=== PATIENT | male | born 1960 | race Caucasian/White ===

== ENCOUNTER 2024-05-25 05:42 | Inpatient (IN) | payer MEDICARE, OTHER ==
[2024-05-14 11:25] VITALS: BP 118/77
[~2024-05-25] VITALS: Ht 175.3 cm; Wt 79.5 kg
[2024-05-25] VITALS (8 sets, daily range): BP systolic 116–136; BP diastolic 56–73
[~2024-05-25 05:42] MED LIST: CLEARLAX119 GM PO; GABAPENTIN300 MG PO; HYDROCODON-ACE1 EA10 PO; HYDROXYZINE HCL50 MG PO; LACTATED RINGER'S 1,000 ML IV SCH; MELOXICAM7.5 MG PO; MYRBETRIQ50 MG PO; TAMSULOSIN HCL0.4 MG PO; TRAZODONE HCL50 MG PO; VRAYLAR3 MG PO
[2024-05-25] MEDS ORDERED: SODIUM CHLORIDE 0.9% 500 ML IV ONE (05:48)
[2024-05-25] MEDS ORDERED: BUPIVACAINE 0.75% IN DEXTROSE 2 ML AMP ONE (06:02)
[2024-05-25] MEDS ORDERED: LIDOCAINE HCL 2% 5 ML SDV ONE (06:02)
[2024-05-25] MEDS ORDERED: METOCLOPRAMIDE HCL 10 MG/2 ML SDV ONE (06:05)
[2024-05-25] MEDS ORDERED: MIDAZOLAM HCL 2 MG/2 ML VIAL ONE (06:05)
[2024-05-25] MEDS ORDERED: FAMOTIDINE 20 MG/ 2 ML VIAL ONE (06:05)
[2024-05-25] MEDS ORDERED: DEXAMETHASONE SOD PHOS 4 MG/ML VIAL ONE (06:05)
[2024-05-25] MEDS ORDERED: fentaNYL citrate 100 MCG/2 ML VIAL ONE (06:05)
[2024-05-25] MEDS ORDERED: LACTATED RINGER'S 1,000 ML IV ONE ×2 (06:05→07:41)
[2024-05-25] MEDS ORDERED: propofoL 200 MG/20 ML VIAL ONE (06:05)
[2024-05-25] MEDS ORDERED: KETOROLAC TROMETHAMINE 30 MG/ML VIAL ONE (06:05)
[2024-05-25] MEDS ORDERED: ondansetron HCL 4 MG/2 ML VIAL ONE (06:05)
[2024-05-25] MEDS ORDERED: KETAMINE in NS 50 MG/5 ML SYR ONE (06:05)
[2024-05-25] MEDS ORDERED: GABAPENTIN 600 MG TAB PO SCH ×2 (07:00→15:00)
[2024-05-25] MEDS ORDERED: OXYCODONE HCL 5 MG TAB PO SCH (07:00)
[2024-05-25] MEDS ORDERED: IBLOOD GLUCOSE TEST STRIP 1 EA TEST VI PRN ×2 (07:00→08:15)
[2024-05-25] MEDS ORDERED: TRANEXAMIC ACID 2,000 MG in SODIUM CHLORIDE 0.9% 100 ML IV SCH (07:00)
[2024-05-25] MEDS ORDERED: LIDOCAINE HCL 1% 5 ML SDV INJ ONE (07:00)
[2024-05-25] MEDS ORDERED: CEFAZOLIN SODIUM 2 GM/20 ML SYR IV SCH ×2 (07:00→15:00)
[2024-05-25] MEDS ORDERED: PANTOPRAZOLE SODIUM 40 MG TABEC PO SCH (07:00)
[2024-05-25] MEDS ORDERED: ondansetron HCL 4 MG TAB PO SCH (07:00)
[2024-05-25] MEDS ORDERED: INTRA-ARTICULAR ANALGESIC INJECTION XX SCH (07:00)
[2024-05-25] MEDS ORDERED: OXYCODONE HCL 5 MG TAB PO PRN (07:00)
[2024-05-25] MEDS ORDERED: KETOROLAC TROMETHAMINE 30 MG/ML VIAL IV PRN (08:15)
[2024-05-25] MEDS ORDERED: ondansetron HCL 4 MG/2 ML VIAL IV PRN (08:15)
[2024-05-25] MEDS ORDERED: droPERidol 5 MG/2 ML VIAL IV PRN (08:15)
[2024-05-25] MEDS ORDERED: METOCLOPRAMIDE HCL 10 MG/2 ML SDV IV PRN (08:15)
[2024-05-25] MEDS ORDERED: PROCHLORPERAZINE EDISYLATE 10 MG/2 ML VIAL IV PRN (08:15)
[2024-05-25] MEDS ORDERED: fentaNYL citrate 50 MCG/ML SDV IV PRN (08:15)
[2024-05-25] MEDS ORDERED: MEPERIDINE HCL 25 MG/1 ML VIAL IV PRN (08:15)
[2024-05-25] MEDS ORDERED: NALOXONE HCL 0.4 MG SYR IV PRN (08:15)
[2024-05-25] MEDS ORDERED: HYDROmorphone HCL 1 MG/ML SYR IV PRN (08:15)
[2024-05-25] MEDS ORDERED: ACETAMINOPHEN500 MG PO (08:52)
[2024-05-25] MEDS ORDERED: XARELTO10 MG PO (08:52)
[2024-05-25] MEDS ORDERED: OXYCODONE HCL5 MG PO (08:52)
[2024-05-25] MEDS ORDERED: SENNA LAX8.6 MG PO (08:52)
--- NOTE | 2024-05-25 09:27 | NUR ---
05/25/24 0901 Faiza Crisostomo 0813- PT ARRIVES TO PACU, SEMI FELIX POSITION WITH OPA IN PLACE. PT MAINTAINS AIRWAY WITH JUST OPA, BREATHING EVEN AND NON LABORED, O2 AT 6L PER MASK. ABD SOFT, NON DISTENDED. DRESSINGS X 2 TO RIGHT HIP, CDI. PT NON REACTIVE TO STIMULUS, LR INFUSING TO RFA IV. ALL MONITORS IN PLACE. XRAY CALLED FOR PELVIS XRAY. 0906- XRAY COMPLETED, PT REMAINS NON REACTIVE TO ALL STIMULUS. CRYO CUFF PLACED AND HEELS ELEVATED ON TOWEL ROLLS. 0913- PT REACTIVE TO STIMULUS, MOVING FINGERS AND RESPONDS TO VERBAL STIMULI. PT FOLLOWS COMMANDS TO REMOVE OPA. PT ABLE TO SWALLOW, O2 REMAINS IN PLACE. 0919- PT MOVED TO ROOM AIR, WILL CONTINUE TO MONITOR. PT REPORTS PAIN 4/10, ALTHOUGH ONLY FEELS PRESSURE JUST BELOW T2. PT HAS NO MOVEMENT TO B LEGS AT THIS TIME.
[2024-05-25] MEDS ORDERED: TRANEXAMIC ACID 2,000 MG in SODIUM CHLORIDE 0.9% 100 ML IV ONE ×2 (09:28→09:58)
--- NOTE | 2024-05-25 09:40 | NUR ---
PT ARRIVES TO DS FROM PACU VIA STRETCHER. PT IS DROWSY, BUT RESPONSIVE TO VERBAL STIMULI AT THIS TIME. PT REPORTS PAIN IS 0/10 AT THIS TIME, NO PRN PAIN MED GIVEN. DRESSING VISUALIZED W/DANILO PERALTA, SMALL AMOUNT OF RED SHADOWING ON SUPERIOR DRESSING. CRYO CUFF, ENOCH HOSE, HEEL PROTECTORS, AND FOOT PUMPS IN PLACE. PT UNABLE TO WIGGLE TOES AT THIS TIME, SPINAL AT KNEE LEVEL. ICE WATER, APPLESAUCE, AND CRACKERS PROVIDED AT BEDSIDE. PT TOLERATING SMALL SIPS OF WATER WITHOUT DIFFICULTY. CALL LIGHT WITHIN REACH, PT REPORTS NO FURTHER NEEDS AT THIS TIME. NO FAMILY OR FRIENDS PRESENT.
--- NOTE | 2024-05-25 10:40 | NUR ---
IN PT ROOM FOR VS AND ASSESSMENT. NO ACUTE CHANGES FROM PREVIOUS ASSESSMENT. SUPERIOR DRESSING REINFORCED D/T PEELING UP. PT TRYING TO URINE VOID THIS TIME, BUT UNABLE. PT TOLERATED ALL OF ICE WATER, CRACKERS, AND APPLESAUCE WITHOUT DIFFICULTY OR REPORT OF ONSET OF NAUSEA. SPINAL RESOLVED IN RLE, IN LLE PT REPORTS NUMBNESS ON POSTERIOR ASPECT OF FOOT AND CALF. PT ABLE TO WIGGLE TOES. ORDER FOR LUNCH PLACED. PT REPORTS PAIN 3/10 AND TOLERABLE AT THIS TIME, STATES NO NEED FOR PRN PAIN MED AT THIS TIME. CALL LIGHT WITHIN REACH, PT REPORTS NO FURTHER QUESTIONS OR NEEDS AT THIS TIME.
[2024-05-25] MEDS ORDERED: ACETAMINOPHEN 1,000 MG/100 ML VIAL IV ONE (11:15)
--- NOTE | 2024-05-25 11:35 | NUR ---
LUNCH ARRIVED. PT REPORTS PAIN IS 4/10, BUT INCREASING. VERBAL ORDER FOR IV OFIRMEV FROM [facility] RECEIVED. OFIRMEV STARTED (SEE EMAR). IV SITE WNL.
--- NOTE | 2024-05-25 11:55 | NUR ---
PT WORKING W/JAMEEL FROM PHYSICAL THERAPY AT THIS TIME.
--- NOTE | 2024-05-25 12:00 | NUR ---
PT TO BATHROOM W/JAMEEL FROM PHYSICAL THERAPY. URINE VOID OF 200 ML OF CLEAR/YELLOW URINE INTO URINAL.
--- NOTE | 2024-05-25 12:50 | NUR ---
IN PT ROOM FOR VS AND ASSESSMENT. PT BACK FROM PHYSICAL THERAPY, JAMEEL Denis/PHYSICAL THERAPY WOULD LIKE TO TALK WITH SUBHA OCONNOR REGARDING PT GOING HOME. VS TAKEN. PT STATES PAIN IS AT 6/10, PRN PAIN MED GIVEN (SEE EMAR). CRYO CUFF, ENOCH HOSE, FOOT PUMPS, AND HEEL PROTECTORS IN PLACE. CALL LIGHT WITHIN REACH, PT STATES NO FURTHER NEEDS AT THIS TIME.
--- NOTE | 2024-05-25 13:34 | OR ---
[facility] [address] [place], [place] [address] Signed DATE OF OPERATION: 05/25/2024 SURGEON: Michell Gunter MD PREOPERATIVE DIAGNOSIS: Severe degenerative joint disease, right hip. POSTOPERATIVE DIAGNOSIS: Severe degenerative joint disease, right hip. PROCEDURE PERFORMED: Right total hip arthroplasty. EDI SPECIALIST: Nataliya Enrique PA-C. Nataliya was present and critical for all portions of procedure. ANESTHESIA: Spinal. BLOOD LOSS: 165 mL. IMPLANTS: Mariana Secur-Fit Max size 7 stem, 54 cup and -2.5 head. BRIEF HISTORY: Ravi is a 64-year-old gentleman with progressive worsening of severe erosive osteoarthritis of the hip. Risks, benefits, and alternatives of surgery were discussed with him and he elected to proceed. DESCRIPTION OF PROCEDURE: Once consent was obtained, he was taken to the operating room. After adequate anesthesia, he was placed on the operating room table. He was placed in the left lateral decubitus position with an axillary roll. All downside pressure points were well padded. The right hip was then prepped and draped in a standard sterile fashion. The computer array for the Travis system was then placed in the posterior half of the iliac crest. The hip was then approached through a standard anterolateral Rivera Alberts approach. The skin was incised longitudinally and carried down to the IT band, which was then divided longitudinally. The vastus lateralis was then divided from the tip of Electronically Signed By: MICHELL GUNTER MD 05/25/24 1334 PATIENT NAME: RAVI LOPEZ OPERATIVE REPORT DATE OF : 56 REPORT #: [id number] PHYSICIAN: MICHELL GUNTER MD PCP: TARA SANCHEZ REPORT IS CONFIDENTIAL AND NOT TO BE RELEASED WITHOUT AUTHORIZATION [facility] [address] [place], [place] [address] Signed the trochanter along its anterior margin distally. This was then elevated subperiosteally around to the level of the lesser trochanter. The gluteus medius was split from the tip of the trochanter to the acetabular rim and this was taken down through the capsule. The capsule was elevated off the femoral neck around to the level of the prior resection. Once this was accomplished, the checkpoints for the femur and patella were registered with the computer. The hip was then dislocated. Femoral neck cut made one fingerbreadth above the lesser trochanter. The femoral head was then removed and passed off the table. The periacetabular soft tissue was removed and the acetabulum was registered with the computer. The robot was then brought in and the acetabulum was reamed at 40 degrees of abduction and 21 degrees of anteversion. The debris was removed and cleared out. The cup was then impacted until it was well seated. The bone was quite firm and there was no need for screws. The liner was then impacted until it was well-seated. Attention was turned to the proximal femur which was opened using the [place] cutter followed by the Samina awl. It was then sequentially broached up to a 7, which matched the computer modeling. The 7 was left in position with a standard offset neck and -5 head. The hip was reduced, leg lengths were found to be little short and his hip was a little bit loose. We then switched to a -2.5 high offset neck and the hip was quite stable. The trials were then removed and the final stem was impacted until it was seated at the same level as the broach. A -2.5 head was then impacted and the hip was reduced. He had range of motion of 100 degrees of flexion, 20 of internal and 30 of external rotation. The wound was then copiously irrigated with a bottle of Surgiphor followed by normal saline. Periarticular soft tissues were injected with 100 mL of ropivacaine and Toradol mixture. The capsule was then closed using #2 FiberWire. Vastus and IT band layers were closed independently using #2 Stratafix, the subcutaneous tissue with 0 Stratafix and the skin with 3-0 Stratafix. Wound was sealed with LiquiBand, Steri-Strips and dressed with an Acticoat-7 dressing. He tolerated the procedure well. All sponge, needle, and instrument counts were correct. Michell Gunter MD BA/MODL /[id number] Electronically Signed By: MICHELL GUNTER MD 05/25/24 1334 PATIENT NAME: RAVI LOPEZ OPERATIVE REPORT DATE OF : 56 REPORT #: [id number] PHYSICIAN: MICHELL GUNTER MD PCP: TARA SANCHEZ REPORT IS CONFIDENTIAL AND NOT TO BE RELEASED WITHOUT AUTHORIZATION [address] [address] Signed Copies: ~ Electronically Signed By: MICHELL GUNTER MD 05/25/24 1334 PATIENT NAME: PATRICEHUMBLENaomyRAVI D OPERATIVE REPORT DATE OF : 56 REPORT #: [id number] PHYSICIAN: MICHELL GUNTER MD PCP: TARA SANCHEZ REPORT IS CONFIDENTIAL AND NOT TO BE RELEASED WITHOUT AUTHORIZATION
--- NOTE | 2024-05-25 13:45 | NUR ---
ANSWERED PT CALL LIGHT. PT REPORTS PAIN REMAINS AT 7/10 AND REQUESTS ADDITIONAL PAIN MED AT THIS TIME. NO ACUTE CHANGES FROM PREVIOUS SURGICAL SITE ASSESSMENT. CRYO CUFF, ENOCH HOSE, HEEL PROTECTORS, AND FOOT PUMPS IN PLACE. PRN OXY GIVEN TO TITRATE TO MAX DOSE OF 10 MG. CALL LIGHT WITHIN REACH, PT STATES NO FURTHER NEEDS AT THIS TIME.
--- NOTE | 2024-05-25 14:47 | NUR ---
Pt arrived to room at about 1432 hours, transferred via bed by PACU RNs Kristina and Geovanna. Pt transferred to room bed via scoot method, slowly, with minimal assist. Pt is A&O x4. Cryo cuff cooler refilled with ice. VSS. Side rails up x4, call light in reach. Pt report received from FABIAN Acevedo. Dressing to right hip has minimal shadowing. Pt reports his pain is currently 5 out of 10 at this time. Cryo cuff applied to pt's right hip. Pt oriented to room and call light. Bedside table, personal belongings, and call light in reach.
[2024-05-25] MEDS ORDERED: ACETAMINOPHEN 500 MG TAB PO SCH (15:00)
[2024-05-25] MEDS ORDERED: MELOXICAM7.5 MG PO (16:41)
--- NOTE | 2024-05-25 16:42 | NUR ---
MED REC COMPLETE
--- NOTE | 2024-05-25 17:34 | NUR ---
In with pt for hourly rounds. Pt does not have a dinner tray but pt states he does not want a dinner tray as he is having a little nausea. Pt was provided with an alcohol swab to sniff to help reduce his nausea. Pt reports his pain is 5 out of 10 at this time. Advised pt to use his call light to let us know when or if he becomes hungry and that we are limited to snacks and sandwich boxes on the floor at night. Pt verbalized understanding. Pt voided 150ml clear edwige colored urine in urinal that was emptied at this time. Call light in reach, cryo cuff running.
--- NOTE | 2024-05-25 19:05 | NUR ---
REPORT RECEIVED FROM DINORAH PERALTA. pt RESTING IN THE BED WITH CRYO CUFF ON RIGHT HIP. SCDs ON FEET. ENOCH RAMÍREZ ON. pt C/O 5/10 PAIN AT THIS TIME. PLAN FOR PRN PAIN MEDICATION TO BE ADMINISTERED. NO OTHER NEEDS AT THIS TIME. CALL LIGHT WITHIN REACH.
--- NOTE | 2024-05-25 19:55 | NUR ---
PHONE CALL PLACED TO DR. MASCORRO FOR PRN NAUSEA MEDICATION. NEW ORDERS PLACED. VERIFIED WITH REPEAT BACK METHOD. NO OTHER NEEDS AT THIS TIME.
[2024-05-25] MEDS ORDERED: ONDANSETRON 4 MG TAB ODT SL PRN (20:00)
--- NOTE | 2024-05-25 20:30 | NUR ---
ASSESSMENT AND VITAL SIGNS DONE. SCHEDULED AND PRN MEDICATION ADMINISTERED. NEW ICE IN CRYO CUFF. SCDs ON. ENOCH HOSE ON. SCANT AMOUNT OF SHADOWING OF ON THE UPPER DRESSING, LOWER DRESSING CDI. WATER REFRESHED. pt DENIES ANT OTHER NEEDS AT THIS TIME. CALL LIGHT WITHIN REACH.
[2024-05-25] MEDS ORDERED: TRAZODONE HCL 50 MG TAB PO SCH (21:00)
[2024-05-25] MEDS ORDERED: buprenorphine HCL 8 MG TAB.SUBL SL SCH (21:00)
[2024-05-25] MEDS ORDERED: TAMSULOSIN HCL 0.4 MG CAP PO SCH (21:00)
[2024-05-25] MEDS ORDERED: hydrOXYzine pamoate 50 MG CAP PO SCH (21:00)
[2024-05-25] MEDS ORDERED: SENNOSIDES 1 TAB PO SCH (21:00)
--- NOTE | 2024-05-25 23:30 | NUR ---
pt RESTING IN THE BED WITH EYES CLOSED. RR EVEN AND UNLABORED. CRYO CUFF ON WITH ICE IN IT. FOOT SCDs ON. ENOCH HOSE ON. IV ABX ADMINISTERED, SEE MAR. NO OTHER NEEDS AT THIS TIME. CALL LIGHT WITHIN REACH.
[2024-05-26] VITALS (10 sets, daily range): BP systolic 92–135; BP diastolic 45–84
--- NOTE | 2024-05-26 02:15 | NUR ---
pt RESTING IN BED. VITAL SIGNS DONE. pt DENIES ANY PAIN AT THIS TIME. ICE REFRESHED IN CRYO CUFF. SCDs ON FEET. ENOCH HOSE ON. pt DENIES ANY OTHER NEEDS AT THIS TIME. CALL LIGHT WITHIN REACH.
--- NOTE | 2024-05-26 05:50 | NUR ---
pt RESTING IN THE BED. ASSESSMENT DONE. pt BANDAGES HAVE SCANT AMOUNT OF SHADOWING. CRYO CUFF HAS ICE. pt DENIES PAIN AT THIS TIME. VITAL SIGNS DONE. FOOT SCDs ON. ENOCH HOSE ON. CALL LIGHT WITHIN REACH.
[2024-05-26] MEDS ORDERED: Rivaroxaban 10 MG TAB PO SCH (08:00)
--- NOTE | 2024-05-26 08:49 | NUR ---
MORNING ASSESSMENT COMPLETE. PATIENT IS SITTING UP IN BED FOR BREAKFAST. MORNING MEDICATIONS GIVEN, 5MG OXY GIVEN IN ANTICIPATION OF PT AND 5/10 RIGHT HIP PAIN. ICE REFILLED TO CRYO. RIGHT HIP DRESSING IS INTACT, OLD DRAINAGE NOTED, NO OTHER NEEDS AT THIS TIME.
[2024-05-26] MEDS ORDERED: cefuroxime axetiL 250 MG TAB PO SCH (09:00)
--- NOTE | 2024-05-26 09:04 | NUR ---
UR CLINICAL REVIEW: 2 MN FOR [facility] INPT CRITERIA MEDICARE INPT 05/25/24 @ 1531 WILL UPDATE REG NO AUTH REQUIRED PER MEDICARE GUIDELINES PENDING FURTHER PT EVALUATION. PATIENT MAY REQUIRE SNF/TRANSITIONAL CARE STAY
--- NOTE | 2024-05-26 10:14 | NUR ---
PHYSICAL THERAPY IN TO WORK WITH PATIENT. PATIENT IS SITTING UP IN CHAIR AT THIS TIME. PATIENT REPORTS HIS PAIN IS 10/10 AND PLAN TO MEDICATE HIM WITH PAIN MEDICATIONS AT THIS TIME.
--- NOTE | 2024-05-26 11:05 | NUR ---
OT IN ROOM WORKING WITH PATIENT. WILL RETURN TO COMPLETE ASSESSMENT.
--- NOTE | 2024-05-26 11:12 | NUR ---
OT IN TO WORK WITH PATIENT.
--- NOTE | 2024-05-26 12:22 | NUR ---
PATIENT IS UP IN CHAIR, EATING LUNCH. PATIENT GIVEN 10MG OF PO OXYCODONE FOR 6/10 RIGHT HIP PAIN, AND IN ANTICIPATION OF AFTERNOON PHYSICAL THERAPY.
--- NOTE | 2024-05-26 13:03 | NUR ---
PATIENT SLEEPING. WILL RETURN TO COMPLETE ASSESSMENT.
--- NOTE | 2024-05-26 13:25 | NUR ---
VISITED DURING SPIRITUAL CARE ROUNDS. PT APPEARED TO BE SLEEPING. DID NOT DISTURB. PROVIDED PRAYER.
--- NOTE | 2024-05-26 13:57 | NUR ---
PATIENT IS WORKING WITH PT. LAST PAIN ASSESSMENT PATIENT WAS 4/10.
--- NOTE | 2024-05-26 14:21 | NUR ---
ICE IN CRYO CUFF, PATIENT REPORTS PAIN IS 8/10 AND DESCENDING AFTER WORKING WITH PT. NO OTHER NEEDS AT THIS TIME.
--- NOTE | 2024-05-26 14:34 | NUR ---
PATIENT ALERT AND ORIENTED, SITTING UP IN RECLINER. STATES HE LIVES IN HOUSE ALONE WITH UP TO 10 STAIRS. HAS A WALKER AND A CANE AT HOME. PATIENT DRIVES AT BASELINE. STATES OCCASIONALLY HE HAS ISSUES PAYING UTILITIES AND HAS PREVIOUSLY REACHED OUT TO [facility], BUT MISSED A DEADLINE FOR HIS APPLICATION. PT RECOMMENDING MORE DAYS IN SKILLED PROGRAM TO ENSURE SAFE DC TO HOME. PATIENT INFORMED OF RECOMMENDATION FOR SNF, INFORMED HIM HE MAY POTENTIALLY STAY IN HOSPITAL TRANSITIONAL CARE VERSUS [facility] FACILITY. VOICES HIS DESIRE TO STAY IN HOSPITAL IF POSSIBLE FOR TRANSITIONAL CARE. STATES HE ALSO IS CONCERNED ABOUT SHOWER CHAIR, INFORMATION FOR [facility] PROVIDED. DENIES OTHER NEEDS AT THIS TIME. INSTRUCTED TO NOTIFY NURSE IF NEEDS ARISE. PATIENT DOES PLAN ON RETURNING HOME WHEN SAFE.
--- NOTE | 2024-05-26 15:45 | NUR ---
PATIENT GIVEN SCHEDULED TYLENOL AND GABAPENTIN. PAIN IS 6/10. BEDSIDE OXIMETER D/C'D PATIENT HAS NEVER REQUIRED O2 WHILE HERE.
--- NOTE | 2024-05-26 17:56 | NUR ---
PATIENT GIVEN 10MG OF OXYCODONE FOR 8/10 RIGHT HIP PAIN. PATIENT DENIES OTHER NEEDS.
--- NOTE | 2024-05-26 19:05 | NUR ---
REPORT RECEIVED FROM ARTIS PERALTA. pt RESTING IN THE BED. BOARD UPDATED. CALL LIGHT WITHIN REACH. NO OTHER NEEDS AT THIS TIME.
--- NOTE | 2024-05-26 21:35 | NUR ---
ASSESSMENT AND VITAL SIGNS DONE. pt TRANSFERED BACK TO BED. 1P/SBA WITH FWW. pt C/O 04/22 PAIN. PRN AND SCHEDULED PAIN MEDICATION ADMINISTERED. SCHEDULED MEDS ADMINISTERED. FOOT SCDs ON. ENOCH HOSE ON. CRYO CUFF ON AND FULL OF ICE. HIP DRESSING INTACT WITH SCANT AMOUNT OF DRAINAGE ON THEM. RLE WITH CMS INTACT. pt DENIES ANY OTHER NEEDS AT THIS TIME. CALL LIGHT WITHIN REACH.
[2024-05-27] VITALS (11 sets, daily range): BP systolic 90–120; BP diastolic 45–95
--- NOTE | 2024-05-27 01:16 | NUR ---
pt RESTING IN BED WITH EYES CLOSED. RR EVEN AND UNLABORED. CALL LIGHT WITHIN REACH.
--- NOTE | 2024-05-27 03:20 | NUR ---
pt RESTING IN THE BED WITH EYES CLOSED. ICE REFRESHED IN CRYO CUFF. SCDs ON. ENOCH HOSE ON. RR EVEN AND UNLABORED. CALL LIGHT WITHIN REACH.
--- NOTE | 2024-05-27 05:15 | NUR ---
pt RESTED THROUGH OUT THE NIGHT. RR EVEN AND UNLABORED. pt ENCOURAGED TO DRINK FLUIDS WHEN URINAL EMPTIED.
--- NOTE | 2024-05-27 07:06 | NUR ---
VERBAL REPORT RECEIVED FROM FABIAN HART. PT RESTS IN BED WITH EYES CLOSED, RESP EVEN AND UNLABORED.
--- NOTE | 2024-05-27 08:45 | NUR ---
CRYO CUFF IN PLACE TO RIGHT HIP. RIGHT HEEL FLOATED. PT RESTS IN BED, WATCHES TV, CALL LIGHT IN REACH. TOLERATING DIET WELL. TEDS IN PLACE TO BLE WITH FOOT SCDS. NO REQUESTS AT THIS TIME.
--- NOTE | 2024-05-27 09:24 | NUR ---
NOTED PT HYPOTENSIVE, 90/45 WITH LOW URINE OUT PUT, 250 MLS IN THE LAST [address] MASCORRO NOTIFIED, NEW ORDER FOR NS BOLUS RECEIVED.
[2024-05-27] MEDS ORDERED: SODIUM CHLORIDE 0.9% 1,000 ML IV SCH (09:30)
--- NOTE | 2024-05-27 10:37 | NUR ---
1 LITER NS BOLUS COMPLETE. BP 111/63, PULSE 77. PT CONTINUES TO BE ASYMPTOMATIC. WORKED WITH OT THIS AM.
--- NOTE | 2024-05-27 10:41 | NUR ---
IS TO BEDSIDE. EDUCATION ON IS USE PROVIDED. PT RETURN DEMONSTATES AND VERBALIZES UNDERSTANDING.
--- NOTE | 2024-05-27 13:29 | NUR ---
DR. MASCORRO NOTIFIED OF PT BP S/P BOLUS COMPLETION AND S/P PHYSICAL THERAPY. NOTIFIED THAT PT HAS NOT HAD URINE OUTPUT SINCE PRIOR TO THE BOLUS. DR. MASCORRO ADVISES TO CONTINUE TO MONITOR. PT ASYMPTOMATIC AT THIS TIME. SITS UP IN RECLINER.
--- NOTE | 2024-05-27 15:00 | NUR ---
FRESH ICE PLACED IN CRYO CUFF.
--- NOTE | 2024-05-27 16:02 | NUR ---
PT VOIDS 40 MLS OF DARK YELLOW URINE.
[2024-05-27] MEDS ORDERED: LIDOCAINE 2% VISCOUS 6 ML SYR TOP ONE (16:30)
--- NOTE | 2024-05-27 16:41 | NUR ---
BLADDER SCAN PERFORMED, 1050 MLS NOTED ON BLADDER SCAN. DR. MASCORRO NOTIFIED. NEW ORDERS RECEIVED FOR CUEVAS CATHETER INSTERTION, TO BE D/C TOMORROW AT 0600 AND INCREASE FLOMAX TO 0.8 MG. 16 FR, COUDE CATHETER INSTERTED VIA STERILE TECHNIQUE, UROJET USED FOR INSERTION. URINE RETURN NOTED, BALLOON FILLED WITH 10 CC OF NS AND SEEDED. URINE DRAINS TO GRAVITY IN CLOSED SYSTEM BAG. PT TOLERATED WELL. PT REPORTS HX OF ENLARGED PROSTATE.
--- NOTE | 2024-05-27 20:40 | NUR ---
RECEIVED REPORT FROM HAILEY, ASSUMED CARE AT THIS TIME. PT IN CHAIR, WANTING TO GO BACK TO BED. WILL GET ASSIST OF WATER MECHANIC.
[2024-05-27] MEDS ORDERED: TAMSULOSIN HCL 0.4 MG CAP PO SCH (21:00)
--- NOTE | 2024-05-27 21:00 | NUR ---
ASSISTING PT TO BED, PT REQUIRED MAX ASSIST TO STAND; HE TRIED TO GET OUT OF CHAIR ON HIS ON, WEAK, UNABLE TO STAND UPRIGHT. HAD TO SIT BACK DOWN, AND 2 STAFF ASSISTED TO GET OUT OF CHAIR; ENDED UP MOVING CHAIR TO SIDE OF BED PT UNABLE TO WALK TO THE BED FROM CHAIR. REQUIRED MAX ASSIST OUT OF CHAIR, STATED HE NEEDED HELP MOVING HIS RIGHT LEG, 3RD STAFF PERSON ASSISTED. PT STATED HE WAS TIRED, HURTING, AMBULATED IN ROOM WITH PT; ONCE ON EDGE OF BED PT ABLE TO USE ARMS TO POSITION SELF FURTHER BACK ON THE BED, THIS RN LIFTED LEGS ONTO BED PT STATED HE WAS UNABLE TO. ONCE IN BED, PT MOVED HIS HIPS OVER. NOTED THAT THE DRESSING ON RIGHT HIP WAS SATURATED WITH BLOOD, DRIPPING (SLOW DRIP) ON TO FLOOR, WELL HIS GOWN. REINFORCED; WILL ALERT DR MASCORRO. FOOT PUMPS IN PLACE; CRYO REFILLED, WITH PILLOWCASE UNDER, PLACED OVER HIP; DID REQUEST PAIN MEDICATION.
--- NOTE | 2024-05-27 21:10 | NUR ---
NOTIFIED DR MASCORRO OF SATURATED RIGHT HIP DRESSING. RECEIVED ORDERS, REPEAT METHOD.
--- NOTE | 2024-05-27 21:45 | NUR ---
HS MEDICATIONS GIVEN, SEE MARS, PAIN MEDICATION FOR 8/10 PAIN. WITH ASSIST OF HOSTESS, AND RN, FOR POSITIONING, DRESSING REMOVED, NOTED TO VERY SMALL AREA WITH FRESH BLOOD ON THE DISTAL PORTION OF THE SURGICAL SITE, WELL PROMOXIAL AREA. NEW ACTICOAT, ACEWRAP PLACED, CRYO BACK IN PLACE. ALL PERSONAL SUPPLIES WITHIN REACH.
--- NOTE | 2024-05-27 23:39 | NUR ---
@2246 PT CONTINUED TO COMPLAIN OF PAIN; 8/10 PAIN. CRYPTOGRAPHIC MACHINE OPERATOR AND THIS RM REPOSITIONED PT, HE REQUESTED ANOTHER PAIN MEDICATION; PREVIOUS DOSE WAS 5 MG OXYCODONE, ADDITIONAL 5 MG GIVEN AT THIS TIME.
--- NOTE | 2024-05-27 23:44 | NUR ---
ROUNDED ON PT, LAYING ON BACK, MOUTH OPEN, RESP EVEN AND UNLABORED;
[2024-05-28] VITALS (7 sets, daily range): BP systolic 101–125; BP diastolic 53–76
--- NOTE | 2024-05-28 01:26 | NUR ---
ROUNDED ON PT. PT CONTINUES WITH EYES CLOSED, RESP EVEN AND UNLABORED. NOTED TV CHANNEL IS CHANGED FROM THE MUSIC CHANNEL TO A NEWS CHANNEL.
--- NOTE | 2024-05-28 02:18 | NUR ---
NOTED THAT WHEN PT ALONE, WITH EYES CLOSED, HANDS/FINGERS ARE NOT TREMULOUS THEY ARE WHEN AWAKE. PT STATED THAT THE SHAKINESS STARTED "2 DAYS" AGO WHEN ASKED HIM 05/27/24 BEFORE MIDNIGHT. DOESN'T DISTRESS HIM, HE JUST WONDERS WHY HE IS SHAKING.
--- NOTE | 2024-05-28 06:54 | NUR ---
CUEVAS REMOVED, AFTER DEFLATING BALLOON OF 10 MLS. SL RESISTENCE IN REMOVING, UNCOMFORTABLE FOR PT. ENCOURAGED RELAXATION, WHILE DIFFICULT, HE DID, CUEVAS OUT. URINE PRESENT, NO OTHER DISCHARGE. BRIEF PLACED, PT AWARE TO CALL. FRESH WASH CLOTH GIVEN, DENIED BRUSHING TEETH AT THIS TIME. ENCOURAGED PT TO REQUEST TO HAVE TEETH BRUSHED. CRYO ICE FILLED, PT REPOSITIONED, PLACED LEFT LEG ON PILLOW TO GET HEEL OFF BED, ROLLED TOWEL UNDER HEEL OF RIGHT HIP. REPOSITIONED OCTAVIA WRAP, NOTABLE EDEMA IN RIGHT THIGH. MEDICATED FOR PAIN, GOT HIS BREAKFAST ORDER. FRESH COFFEE AT THIS TIME WELL. FOOT PUMPS REMAIN IN PLACE.
--- NOTE | 2024-05-28 07:00 | NUR ---
UPDATED DR MASCORRO OF PT NIGHT. DISCUSSED PT BIPOLAR MEDICATION VRAYLAR; AND PT SAYING HE PROB DIDN'T NEED TO TAKE, DR MASCORRO DISAGREED, HOWEVER MEDICATION IS NOT ON FORMULARY, PRIMARY RN FLOR TO DISCUSS WITH PHARMACIST AN ALTERNATIVE.
--- NOTE | 2024-05-28 07:35 | NUR ---
recieved in room pt report from manager shift nurse at 0715. pt is in bed watching television. when offered cares pt denied the need of any at this time call light within reach
--- NOTE | 2024-05-28 08:00 | NUR ---
Admit assessment completed.
--- NOTE | 2024-05-28 09:20 | NUR ---
VISITED DURING SPIRITUAL CARE ROUNDS. PT APPEARED TO BE SLEEPING. DID NOT DISTURB. PROVIDED PRAYER.
--- NOTE | 2024-05-28 10:00 | NUR ---
Spoke with Ranjeet. Affect is flat. We discussed Swing Bed program and requirements. Dr. Gunter choose to not admit today. Pt was discussed in am meeting. Per PT, but not participating. Pts antidepressants also discussed. Pt needs to restart meds.
--- NOTE | 2024-05-28 11:09 | NUR ---
THIS MORNING AFTER BREAKFAST PATIENT BRUSHED HIS TEETH AND WASHED HIS FACE.
--- NOTE | 2024-05-28 13:28 | NUR ---
VISITED DURING SPIRITUAL CARE ROUNDS. PT APPEARED TO BE SLEEPING. DID NOT DISTURB. PROVIDED PRAYER.
--- NOTE | 2024-05-28 14:00 | NUR ---
Spoke with Samantha charge loader. Antidepressant has not been ordered. I called and spoke with Dr. Gunter. He requested we speak with pharmacy and have them order something comparable. I spoke with [facility] and [facility]. They feel there is not a comparable med. Pt declined to have medication brought in. I spoke with PT a second time. I discussed with her, [place] and does not have anyone to assist him on discharge. She states he had stated a friend would stay with him. We went in together and pt had voided in a urinal. Reta asked why he was using the urinal and not walking to the bathroom. Pt stating he can't. She reminded him this was discussed with him earlier and he needs to walk to the bathroom. Pt declines. I again discussed with pt his discharge plan. He is now stating he does not have anyone to help him at home. He only had help the first 2 day after surgery. I attempted to discuss with pt the plan for driving, grocery shopping, cooking. He states he's not sure what he will do. [place] We then discussed it may be best for him to go to a SNF. If he needs to he needs to have a longer stay he would be able to to do. Pt in agreement. I called Dr. Gunter back and discussed. Plan now is for pt to go to a SNF on discharge. Pt given the Pt. choice letter and list.
--- NOTE | 2024-05-28 14:20 | NUR ---
Note entered in wrong chart. Moved for Dc MATIAS 15:30 1420 DISCUSSED LENGTH OF TIME PATIENT WILL LIKELY NEED FOR SNF. DISCUSSED HIS NEED FOR PLACEMENT AT THIS TIME TO ENSURE HIS POTENTIAL FOR REHAB IS MET. PATIENT STATES [facility], [facility] ARE HIS 3 PREFERENCES. CLINICALS FAXED TO THESE 3 FACILITIES. [facility] WILL HAVE A BED OPEN TOMORROW, BUT WILL NEED TO REVIEW THE CLINICALS BEFORE ACCEPTING PATIENT.
--- NOTE | 2024-05-28 15:05 | NUR ---
PT ATTEMPTING AND UNABLE TO VOID IN URINAL. COMPLAINS OF FEELING "FULL" BLADDER SCAN OF 966MLS. CALLED PLACED TO DR MASCORRO, TELEPHONE ORDER TO PLACE CUEVAS.
--- NOTE | 2024-05-28 15:50 | NUR ---
PT HAD A DRESSING CHANGE TODAY PER DR ORDERS. ACTICOAT ON BOTH SITES WERE CHANGED AND RESEALED AND OCTAVIA WRAPPED. PT ALSO HAD A CATHETER PLACED BACK IN DUE TO RETENTION DIFFICULTY. PT TOLERATED BOTH TASKS WELL. CALL LIGHT WITHIN REACH
--- NOTE | 2024-05-28 19:57 | NUR ---
REPORT RECIEVED FROM DAY SHIFT RN. PATIENT RESTING IN CHAIR WITH EYES CLOSED. RESPIRATIONS EVEN AND UNLABORED. CALL LIGHT IN REACH.
--- NOTE | 2024-05-28 21:15 | NUR ---
SERVICE COORDINATOR [facility] OBTAINED VITALS. PT STATED THAT HE WAS READY TO GET INTO BED. SERVICE COORDINATOR [facility] 1PA WITH FWW TO BED. SERVICE COORDINATOR [facility] EMPTIED CUEVAS AND DOCUMENTED I&O. CRYO CUFF REFILLED WITH ICE. PT GIVEN 2 ICE MARSHALL UPON PT REQUEST. PT TOLD THIS SERVICE COORDINATOR [facility] THAT HE GOT A HOME MED AND HAD TAKEN ONE. CHARGE AND PRIMARY RN NOTIFIED. PT STATES NO FURTHER NEEDS AT THIS TIME. CALL LIGHT WITHIN REACH.
--- NOTE | 2024-05-28 21:24 | NUR ---
CONGRESSIONAL REPRESENTATIVE REPORTED TO PRIMARY RN RALPH, WELL THIS RN, THAT PT "TOOK A PILL FROM HIS BOTTLE OF MEDS". PT HAD A FRIEND DELIVER HIS VRAYLAR, A MEDICATION THAT DR MASCORRO INQUIRED ABOUT THIS AM, IT IS A HOME MEDICATION FOR HIS BIPOLAR. WILL LET DR KNOW IN THE AM; MEDICATIONS ARE LOCKED IN ROOM SAFE. PT STATES HE WAS DOING BETTER TODAY THAT LAST NIGHT WHEN THIS RN WAS HIS PRIMARY RN. ABLE TO BE ONE PERSON ASSIST WITH FWW, PAIN IS BETTER HE STATED. SAYS HE "IS GOING TO SNF IN [place]" TOMORROW
--- NOTE | 2024-05-28 21:30 | NUR ---
PATIENT RESTING IN BED. SCHEDULED MEDICATION ADMINISTERED. ASSESSMENT COMPLETE. R HIP DRESSING C/D/I. TAJ REPORTS 03/23 R HIP PAIN. PRN PAIN MEDICATION ADMINISTERED PER PATIENT REQUEST. CRYO CUFF ON RIP HIP WITH LINEN BARRIER PLACED. FRESH ICE WATER IN CRYO CUFF. PATIENT HEELS ELEVATED WITH PILLOW TO KEEP OFF BED. PATIENT REFUSED HEEL PROTECTORS. PATIENT STATED "I DO NOT WANT SOMETHING BULKY ON MY FEET". PATIENTS IV FLUSH WNL. WARM BLANKET PROVIDED. PATIENT HAS NO FURTHER NEEDS. CALL LIGHT IN REACH.
--- NOTE | 2024-05-28 23:36 | NUR ---
PATIENT RESTING IN BED ON BACK WITH EYES CLOSED. RESPIRATIONS EVEN AND UNLABORED. CALL LIGHT IN REACH.
[2024-05-29 00:44] VITALS: BP 119/53
--- NOTE | 2024-05-29 01:45 | NUR ---
PATIENT RESTING IN BED ON BACK WITH EYES CLOSED. RESPIRATIONS EVEN AND UNLABORED. CALL LIGHT IN REACH. SCDs IN PLACE.
--- NOTE | 2024-05-29 03:51 | NUR ---
PATIENT RESTING IN BED WITH EYES CLOSED. RESPIRATIONS EVEN AND UNLABORED. CALL LIGHT IN REACH.
[2024-05-29 05:32] VITALS: BP 109/47
--- NOTE | 2024-05-29 05:37 | NUR ---
HOGSHEAD FILLER OBTAINED VITALS AND I&O. PRIMARY RN REFILLED CRYO CUFF WITH ICE. PT STATES NO NEEDS AT THIS TIME. CALL LIGHT PLACED WITHIN REACH.
--- NOTE | 2024-05-29 05:45 | NUR ---
PATIENT R HIP DRESSING C/D/I. PATIENT HAS NO COMPLAINTS OF PAIN. CRYO CUFF ICE REFILLED. PATIENT HEELS ELEVATED OFF BED WITH PILLOW. PATIENT HAS NO FURTHER NEEDS AT THIS TIME. CALL LIGHT IN REACH.
[2024-05-29 06:28] VITALS: BP 109/47
--- NOTE | 2024-05-29 08:34 | NUR ---
recieved report from nightshift nurse at 0705. pt is currently asleep. even and unlabored breathing noted and call light within reach
[2024-05-29] MEDS ORDERED: CARIPRAZINE HCL 3 MG CAPSULE PO SCH (09:00)
--- NOTE | 2024-05-29 09:20 | NUR ---
Received a text from Rachel at [facility] at 0900. She did not received the med list that was faxed yesterday. List faxed. They plan on picking pt up at 1 pm with their transport. I texted Dr. Gunter and update as he is in surgery and took the SNF orders to PACU for him to complete.
[2024-05-29 09:30] VITALS: BP 102/45
--- NOTE | 2024-05-29 09:57 | NUR ---
Notified by Rachel, still did not received the med list. Faxed again.
--- NOTE | 2024-05-29 11:02 | NUR ---
THIS MORNING GOT PATIENT TWO GLASSES OF ICE WATER BEFORE BREAKFAST. PATIENT DIDN'T WANT TO SET UP IN THE CHAIR FOR BREAKFAST.
--- NOTE | 2024-05-29 11:08 | NUR ---
H&P, orders, Pasrr, rx's faxed to Rachel at [facility]. [facility] placed in envelope for transport. New meds were electronically sent to [facility] after surgery and pts friend picked them up. Plan initally was for pt to dc to home. I called and she will bring to the hospital for them to go with pt on discharge. Transport has been changed to 1:30 so Jeanne and get the meds from her house and bring them to the hospital.
--- NOTE | 2024-05-29 13:19 | NUR ---
IN WITH JAI TARIQ TO GET PT READY FOR RIDE. THIS RN PACKS UP PTs STOCK TURNER, PHONE AND MEDICATION FROM LOCK BOX IN PTs BELONING BAGS AND HANDED TO PT. PRIMARY RN FABIAN RAY IN ROOM TO TAKE OVER, NO OTHER NEEDS FROM THIS RN. JAI TARIQ AND FABIAN RAY IN ROOM.
[2024-05-29 13:23] VITALS: BP 127/55
--- NOTE | 2024-05-29 13:28 | NUR ---
THIS RN CALLED DR. MASCORRO REGARDING PTs DC. [place] OVER PHONE CALL "YES, GO AHEAD AND DISCHARGE PT." VERIFIED WITH READBACK.
--- NOTE | 2024-05-29 16:21 | NUR ---
THIS RN CALLED [facility] AND GAVE REPORT TO CHRIS OVER THE PHONE. QUESTIONS ANSWERED.
--- NOTE | 2024-05-29 16:59 | NUR ---
PT DC'd BY ISAURA RAY RN AT 13:50
== END 2024-05-29 13:50 | disposition home or self-care (01) | DRG 470 ==
LOC: DS 05:42 → MS 05:42 → DS 07:00 → MS 14:33 → DS 14:33 → MS 15:31 → DS 15:31 → MS 05-29 13:50
PROVIDERS: ADMIT Specialist; ATTEND Specialist
PROC: 0SR904Z Replacement of Right Hip Joint with Ceramic on Polyethylene Synthetic Substitute, Open Approach (ICD-10-PCS; principal; 2024-05-25 07:00)
DX: M16.11 Unilateral primary osteoarthritis, right hip (principal); F31.9 Bipolar disorder, unspecified; F41.9 Anxiety disorder, unspecified; Z88.5 Allergy status to narcotic agent; Z86.19 Personal history of other infectious and parasitic diseases; Z79.899 Other long term (current) drug therapy; Z87.891 Personal history of nicotine dependence
CPT/HCPCS: 01214; 72170; 97110; 97116; 97162; 97166; 97530; 97535; A9270; C1713; C1776; J0131; J0690; J1100; J1885; J2001; J2250; J2405; J2704; J2765; J3010; J3490; J7030; J7040; J7121